=== PATIENT | female | born 1960 | race Caucasian/White ===

== ENCOUNTER 2017-08-14 18:29 | Emergency (ER) | payer BC, OTHER ==
[2017-08-14 19:37] VITALS: BP 153/76
--- NOTE | 2017-08-14 20:43 | UC ---
Ear Complaint HPI - HPI Summary HPI Summary: 57 y/o female presents to the urgent care c/o B/L ear pain w/ decrease hearing since 08/11/2017. Pain is worse today specially in the left ear, 09/05. she has been taking Sudafed and Yokasta to alleviates symptoms of sinus congestion. Pt has Hx of seasonal allergies. Pt denies fever, dizziness, tinnitus, HOLM, SOB, chest pain, cough, abdominal pain, N/V/D. 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 ?: No Onset/Duration: Gradual Onset, Lasting Days - 3 days, Still Present, Worse Since - today Severity Initially: Moderate Pain Intensity: 5 Pain Scale Used: 0-10 Numeric Aggravating Factors: Other Alleviating Factors: OTC Meds Associated Signs/Symptoms: Positive: Hearing Loss, URI Symptoms Related History: Seasonal Allergies - Allergies/Home Medications Allergies/Adverse Reactions: Allergies Allergy/AdvReac Type Severity Reaction Status Date / Time Penicillins Allergy Hives Verified 08/14/17 19:39 povidone-iodine Allergy Rash And Verified 08/14/17 19:39 Itching Home Medications: Home Medications Pseudoephedrine HCL ER TAB* [Sudafed 12 Hour*] 120 mg PO BID PRN 08/14/17 [ History Confirmed 08/14/17] PMH/Surg Hx/FS Hx/Imm Hx Previously Healthy: Yes GI/ History: Gastroesophageal Reflux Psychological History: Anxiety, Depression - Surgical History Surgical History: Yes Surgery Procedure, Year, and Place: Complete Hysterectomy 2009, Gastric Bypass 03/11/2006. - Family History Family History: Dyslipidemia, Breast cancer, parkinson, Colon [place] - Social History Occupation: Employed Full-time Lives: With Family Alcohol Use: Rare Substance Use Type: None Smoking Status (MU): Former Smoker Type: Cigarettes Review of Systems Constitutional: Negative Skin: Negative Eyes: Negative ENT: Ear Ache - B/L ear pain w/ decrease hearing, Nasal Discharge, Sinus Congestion, Sinus Pain/Tenderness Respiratory: Negative Cardiovascular: Negative Gastrointestinal: Negative Genitourinary: Negative Motor: Negative Neurovascular: Negative Musculoskeletal: Negative Neurological: Headache Psychological: Negative Is Patient Immunocompromised?: No All Other Systems Reviewed And Are Negative: Yes Physical Exam - Summary Physical Exam Summary: Vital Signs Reviewed: Yes General: well developed, well nourished female sitting in the examining table w/ o any apparent distress Eyes: Positive: Conjunctiva Clear - PERRLA, EOMI, fundi grossly normal ENT: Positive: Normal ENT inspection, Hearing grossly normal,RT external ear canal moderate impacted w/ cerumen, unable to visualize TM, Lf exteranl ear canal w/ mild cerumen, LF TM injected w/ erythema. Pharynx mild erythema, no exudate, Nasal congestion - edematous and erythematous nasal mucosa, Nasal drainage - yellowish drainage, Positive frontal and maxillary tenderness on percussion. Negative: Tonsillar swelling, Tonsillar exudate Neck: Positive: Supple, Nontender, No Lymphadenopathy Respiratory: no orthopnea or dyspnea. Able to speak in full sentences, no retractions or accessory muscle use, no tripod position, stridor, or head bobbing. CTA bilaterally, no wheezing, no rhonchi, no rales, no crackles. Cardiovascular: Positive: RRR, No Murmur, Pulses Normal, Brisk Capillary Refill Abdomen Description: Positive: Nontender, No Organomegaly, Soft. Negative: CVA Tenderness (R), CVA Tenderness (L) Bowel Sounds: Positive: Present Musculoskeletal Exam: Normal Musculoskeletal: Positive: Strength Intact, ROM Intact, No Edema Neurological Exam: Normal Psychological Exam: Normal Skin Exam: Normal Triage Information Reviewed: Yes Vital Signs: Initial Vital Signs Temp 98.6 F 08/14/17 19:32 Pulse 88 08/14/17 19:32 Resp 16 08/14/17 19:32 BP 153/76 08/14/17 19:32 Pulse Ox 98 08/14/17 19:32 Ear Complaint Course/Dx - Course Course Of Treatment: 57 y/o female presents to the urgent care c/o B/L ear pain w/ decrease hearing since 08/11/2017. Pain is worse today specially in the left ear, 09/05. she has been taking Sudafed and Yokasta to alleviates symptoms of sinus congestion. Pt has Hx of seasonal allergies. Pt denies fever, dizziness, tinnitus, HOLM, SOB, chest pain, cough, abdominal pain, N/V/D. Hx obtained. Pt w/ Left acute otitis media, RT cerumen impaction and sinusitis on examination. Pt PCN allergic. Pt given Azithromycin PO first dose at the clinic. Pt tolerated well medication. Pt Rx Azithromycin PO, Debrox otic drops to alleviate symptoms. Pt advised to continue taking Sudafed PO to alleviate symptoms. Pt's BP is elevated today advised to decrease salt in diet, monitor BP and f/u with PCP for further management. D/C instructions explained. Pt understood and agreed w/ plan of care. - Differential Dx/Diagnosis Differential Diagnosis/HQI/PQRI: Cerumen Impaction, Otitis Externa, Otitis Media , Perforated TM, URI, Other - sinusitis Provider Diagnoses: 1- Left otitis media. 2- RT ear Cerumen impaction. 3- Acute sinusitis. 4- Elevated BP w/o Hx of HTN Discharge - Sign-Out/Discharge Documenting (check all that apply): Discharge - Discharge Plan Condition: Stable Disposition: HOME Prescriptions: Azithromycin TAB* [Zithromax TAB (Z-PAU) 250 mg #6 tabs] 250 mg PO DAILY #4 tab Carbamide Peroxide 6.5% OTIC* [DEBROX 6.5% Otic*] 5 drop BOTH EARS BID #1 bottle Patient Education Materials: Ear Infection (ED), Low-Sodium Diet (ED) Referrals: Mimi Stout MD [Primary Care Provider] - 3 Days Additional Instructions: 1- Please take the full course of the antibiotic to avoid resistance. first dose given at the clinic tonight. 2-Please apply Debrox otic drops as directed to softer cerumen. 3-If symptoms do not improve or worsen please return to the urgent care or f/u with your PCP in 3 days for further evaluation and treatment. 4-Your BP is elevated today. please decrease salt in your diet, monitor BP and if it continues to be elevated please f/u with your PCP for further management - Billing Disposition and Condition Condition: STABLE Disposition: HOME
[2017-08-14] MEDS ORDERED: Azithromycin TAB* 250 MG PO ONE (20:55)
== END 2017-08-14 21:05 | disposition home or self-care (01) ==
LOC: UCEAST 18:29
DX: H66.92 Otitis media, unspecified, left ear (principal); H61.21 Impacted cerumen, right ear; J01.90 Acute sinusitis, unspecified; R03.0 Elevated blood-pressure reading, without diagnosis of hypertension; K21.9 Gastro-esophageal reflux disease without esophagitis; F41.9 Anxiety disorder, unspecified; F32.9 Major depressive disorder, single episode, unspecified; Z88.0 Allergy status to penicillin; Z87.891 Personal history of nicotine dependence
CPT/HCPCS: 99212; A9270-GY; G0463

== ENCOUNTER 2018-04-25 17:00 | Emergency (ER) | payer BC ==
[2018-04-25 17:12] VITALS: BP 159/97
--- NOTE | 2018-04-25 17:34 | ED ---
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 by [facility] this month. She was put on a Prednisone taper. She is continuing to take it. She has complaint of burning pain and sharp pulsation of pain in the ulcerations on the lower legs. She has not anything for pain. She found out she is a diabetic. She only has pain in the ulcer areas. No redness, drainage or fever or chills. No other complaints. She states touching the ulcer areas illicits a burning, sharp type pain in the areas that comes and goes. pain is moderate. 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 Intensity: 9 - Allergy/Home Medications Allergies/Adverse Reactions: Allergies Allergy/AdvReac Type Severity Reaction Status Date / Time Penicillins Allergy Hives Verified 04/25/18 17:12 povidone-iodine Allergy Rash And Verified 04/25/18 17:12 Itching Home Medications: Home Medications Zolpidem TAB* [Ambien*] 10 mg PO DAILY PRN 04/25/18 [History Confirmed 04/25/18] PMH/Surg Hx/FS Hx/Imm Hx Endocrine/Hematology History: Denies: Hx Diabetes, Hx Thyroid Disease Cardiovascular History: Denies: Hx Hypertension Respiratory History: Denies: Hx Asthma, Hx Chronic Obstructive Pulmonary Disease (COPD) GI History: Denies: Hx Ulcer - Surgical History Surgery Procedure, Year, and Place: Complete Hysterectomy 2009, Gastric Bypass 03/11/2006. Infectious Disease History: No Infectious Disease History: Denies: Hx Hepatitis, Hx Human Immunodeficiency Virus (HIV), Traveled Outside the [place] in Last 30 Days - Family History Known Family History: Positive: Unknown Family History: Dyslipidemia, Breast cancer, parkinson, Colon [place] - Social History Alcohol Use: Rare Substance Use Type: Reports: None Smoking Status (MU): Former Smoker Type: Cigarettes Review of Systems Constitutional: Negative Positive: Rash, Other - pain in the ulcers All Other Systems Reviewed And Are Negative: Yes Physical Exam Triage Information Reviewed: Yes Vital Signs On Initial Exam: Initial Vitals Temp Pulse Resp BP Pulse Ox 96.9 F 89 20 159/97 97 04/25/18 17:07 04/25/18 17:07 04/25/18 17:07 04/25/18 17:07 04/25/18 17:07 Vital Signs Reviewed: Yes Appearance: Positive: Well-Appearing, No Pain Distress Skin: Positive: Warm, Other - ulcers in lower medial legs that are not infected , no redness, no drainage. Head/Face: Positive: Normal Head/Face Inspection Eyes: Positive: EOMI ENT: Positive: Normal ENT inspection Neck: Positive: Nontender Respiratory/Lung Sounds: Positive: Clear to Auscultation, Breath Sounds Present Cardiovascular: Positive: RRR, Pulses are Symmetrical in both Upper and Lower Extremities. Negative: Murmur Abdomen Description: Negative: Distended Musculoskeletal: Positive: Strength/ROM Intact Neurological: Positive: Sensory/Motor Intact, Alert, Oriented to Person Place, Time, CN Intact II-III Psychiatric: Positive: Normal - Malcolm Coma Scale Best Eye Response: 4 - Spontaneous Best Motor Response: 6 - Obeys Commands Best Verbal Response: 5 - Oriented Coma Scale Total: 15 Diagnostics - Vital Signs Vital Signs Temp Pulse Resp BP Pulse Ox 04/25/18 17:07 96.9 F 89 20 159/97 97 - Laboratory Lab Statement: Any lab studies that have been ordered have been reviewed, and results considered in the medical decision making process. Course/Dx - Course Course Of Treatment: 57 yr old with vasculitis. She will continue her steroids. Script for neurontin sent to pharmacy with hope she can get better sleep with the pain. - Diagnoses Provider Diagnoses: Vasculitis determined by biopsy of skin, Hypertension, Neuropathic pain of both legs Discharge - Sign-Out/Discharge Documenting (check all that apply): Patient Departure All imaging exams completed and their final reports reviewed: No Studies - Discharge Plan Condition: Good Disposition: HOME Prescriptions: Gabapentin CAP(*) [Neurontin 300 CAP(*)] 300 mg PO BEDTIME #7 cap Patient Education Materials: Hypertension (ED), Connective Tissue Disorders (ED ) Referrals: Mimi Stout MD [Primary Care Provider] - 2 Days - Billing Disposition and Condition Condition: GOOD Disposition: Home
== END 2018-04-25 17:49 | disposition home or self-care (01) ==
LOC: UCEAST 17:00
DX: L95.8 Other vasculitis limited to the skin (principal); I10 Essential (primary) hypertension; L95.9 Vasculitis limited to the skin, unspecified; G57.93 Unspecified mononeuropathy of bilateral lower limbs; Z88.0 Allergy status to penicillin; Z88.8 Allergy status to other drugs, medicaments and biological substances; Z87.891 Personal history of nicotine dependence
CPT/HCPCS: 99212; G0463